=== PATIENT | male | born 1975 | race Two or more races ===

== ENCOUNTER 2017-04-21 12:25 | Emergency (ER) | payer SELFPAY ==
[~2017-04-21] VITALS: Ht 165.1 cm; Wt 69.4 kg
--- NOTE | 2017-04-21 12:30 | NUR ---
PT TO ED DT GENERALIZED BODY RASH FOR 3 MONS. PATIENT CO ITCHINESS. NO DISCHARGE. VSS
[2017-04-21 13:21] VITALS: BP 134/104
--- NOTE | 2017-04-21 13:21 | NUR ---
Patient discharged to home in stable condition. Written and verbal after care instructions given. Patient verbalizes understanding of instruction.
== END 2017-04-21 13:22 | disposition home or self-care (01) ==
LOC: ER 12:30
DX: R21 Rash and other nonspecific skin eruption (principal)
CPT/HCPCS: 99283; A4606; Z7610